=== PATIENT | female | born 1990 | race Caucasian/White ===

== ENCOUNTER 2022-05-13 08:34 | Outpatient (CLI) | payer BC, SELFPAY ==
--- NOTE | 2022-05-13 08:45 | US_ITS ---
Final Report Patient: TABITHA HARDIN Facility:?[facility] Patient ID:?[id number] Site Patient ID:?[id number]. Site :?[id number] Study:?US OB Pelvis TV DATING/VIABILITY-05/13/2022 10:37:27 AM Ordering Physician:Stacy February Final Report: INDICATION: . TECHNIQUE: Ultrasound OB pelvis transabdominal and transvaginal. Real-time brown-scale imaging of the pelvis was performed. COMPARISON: None. FINDINGS: There is a single intrauterine gestation. The embryo demonstrates a regular cardiac rate measuring 174 beats per minute. The embryo`s crown rump length measurement of 4.5 cm corresponds to a gestational age of 11 weeks 2 days with a sonographic due date of 11/30/2022. Yolk sac not visualized. Gestational sac measures 4.9 cm. There are no gross abnormalities noted within the embryo at this early state of development. No signs of perigestational hemorrhage. Right ovary measures 3.2 x 1.4 x 1.4. Left ovary is not visualized. IMPRESSION: 1. Single viable intrauterine approximately 11 weeks 2 days with estimated due date of 11/30/2022. No abnormalities seen. 2. Left ovary not visualized. Dictated by John Willard MD @ 05/13/2022 11:55:24 AM (Electronic Signature)
== END 2022-05-13 08:35 | disposition home or self-care (01) ==
LOC: US 08:36
PROVIDERS: PCP Family Medicine; Visit Provider Physician Assistant
DX: Z34.91 Encounter for supervision of normal pregnancy, unspecified, first trimester (principal); Z3A.11 11 weeks gestation of pregnancy
CPT/HCPCS: 76817

== ENCOUNTER 2022-05-13 10:08 | Outpatient (CLI) | payer BC, SELFPAY ==
[2022-05-13 13:00] LABS: Alanine Aminotransferase* 62 U/L (4-35); Aspartate Amino Transferase* 39 U/L (12-35)
[2022-05-13 16:54] LABS: Chlamydia DNA Amplified* NOT DETECTED (No Detected); GC DNA Amplified* NOT DETECTED (No Detected)
[2022-05-13 21:27] LABS: Hepatitis B Surface Antigen* Negative (Negative)
[2022-05-13 21:40] LABS: HIV 1/2/P24 Combo Screen* Negative (Negative)
[2022-05-13 22:33] LABS: Hepatitis C Virus Antibody* Negative (Negative)
[2022-05-14 23:29] LABS: Rapid Plasma Reagin (RPR) Non Reactive (Non Reactive)
[2022-05-16 16:57] LABS: Hepatitis B Core Antibody, IgM Negative (Negative); Hepatitis B Surface Antigen Negative (Negative); Hepatitis C Antibody by CIA Negative (Negative)
[2022-05-24 21:19] LABS: Cystic Fibrosis, Allele 1 Negative; Cystic Fibrosis, Allele 2 Negative
== END 2022-05-13 10:09 | disposition home or self-care (01) ==
PROVIDERS: PCP Family Medicine; Visit Provider Physician Assistant
DX: O99.281 Endocrine, nutritional and metabolic diseases complicating pregnancy, first trimester (principal); E03.9 Hypothyroidism, unspecified; R74.8 Abnormal levels of other serum enzymes; Z3A.11 11 weeks gestation of pregnancy; Z01.419 Encounter for gynecological examination (general) (routine) without abnormal findings; Z11.51 Encounter for screening for human papillomavirus (HPV); Z11.3 Encounter for screening for infections with a predominantly sexual mode of transmission
CPT/HCPCS: 80074; 81220; 84450; 84460; 86592; 86703; 86706; 86762; 86803; 86850; 86900; 86901; 87086; 87491; 87591; 87624; 88175

== ENCOUNTER 2022-05-16 14:40 | Outpatient (CLI) | payer BC, SELFPAY ==
--- NOTE | 2022-05-16 15:00 | CRLHL7_ITS ---
For Patients: As a result of the Century Cures Act, medical imaging exams and procedure reports are released immediately into your electronic medical record. You may view this report before your referring provider. If you have questions, please contact your health care provider. INDICATION: Abnormal liver enzymes TECHNIQUE: Ultrasound abdomen limited. Sonographic images of the right upper quadrant were obtained using brown-scale and color Doppler images. COMPARISON: I required ultrasound February 2018 FINDINGS: Liver: Normal in size and echotexture. No masses. No intrahepatic biliary dilatation. Gallbladder: Postcholecystectomy Common bile duct: 5 mm. Pancreas: Normal. Right kidney: 11.1 x 4.6 x 5.0 cm. Questionable focal masslike area versus normal tissue measuring 4.2 x 2.9 x 2.8 centimeters. Vasculature: Proximal abdominal aorta and IVC are normal. IMPRESSION: Difficult exam due to patient body habitus. Questionable masslike area of the right kidney difficult to adequately visualize on this exam, this could be evaluated with contrast-enhanced CT as clinically indicated. Post cholecystectomy. Dictated by Mariangel Callahan MD @ 05/17/2022 1:01:29 PM (Electronically Signed)
== END 2022-05-16 14:41 | disposition home or self-care (01) ==
LOC: US 14:41
PROVIDERS: PCP Family Medicine; Visit Provider Physician Assistant
DX: R74.8 Abnormal levels of other serum enzymes (principal); R94.8 Abnormal results of function studies of other organs and systems
CPT/HCPCS: 76705

== ENCOUNTER 2022-06-10 09:31 | Outpatient (CLI) | payer BC, SELFPAY | END 2022-06-10 09:32 | disposition home or self-care (01) | LOC: NFLDREF 09:32 | PROVIDERS: PCP Family Medicine; Visit Provider Advanced Practice Midwife | DX: Z34.92 Encounter for supervision of normal pregnancy, unspecified, second trimester (principal); Z3A.15 15 weeks gestation of pregnancy; E03.9 Hypothyroidism, unspecified | CPT/HCPCS: 84443 ==

== ENCOUNTER 2022-07-15 09:49 | Outpatient (CLI) | payer BC, SELFPAY ==
--- NOTE | 2022-07-15 10:00 | CRLHL7_ITS ---
For Patients: As a result of the Century Cures Act, medical imaging exams and procedure reports are released immediately into your electronic medical record. You may view this report before your referring provider. If you have questions, please contact your health care provider. INDICATION: Rule out tumor. TECHNIQUE: CT abdomen and pelvis acquired with Isovue 350 IV contrast. COMPARISON: Comparison made to abdominal ultrasound report 05/17/2022. FINDINGS: Lower chest: Unremarkable. Liver: Unremarkable. Normal in size and attenuation. No suspicious masses. Gallbladder and bile ducts: Gallbladder surgically absent. No biliary ductal dilation. Pancreas: Unremarkable. No mass or inflammation. Spleen: Unremarkable. Normal in size. No masses. Adrenal glands: Unremarkable. No nodules. Kidneys: No renal mass. No stones or hydronephrosis. No filling defect in collecting systems or opacified portions of the ureters or bladder. GI tract: Unremarkable. Normal in caliber. No sign of mass or inflammation. Normal appendix. Vasculature: Unremarkable. Mesenteric arteries are patent. Lymph nodes: No lymphadenopathy. Omentum/Peritoneum/Abdominal Wall: Unremarkable. No sign of mass or infiltration. No free air or significant free fluid. Pelvis: Unremarkable. Bones: Unremarkable for age. IMPRESSION: Unremarkable exam. No renal mass. Please note that all CT scans at this facility use dose modulation, iterative reconstruction, and/or weight-based dosing when appropriate to reduce radiation dose to as low as reasonably achievable. Dictated by John Willard MD @ 07/15/2022 12:46:57 PM (Electronically Signed)
== END 2022-07-15 09:50 | disposition home or self-care (01) ==
LOC: CT 09:49
PROVIDERS: PCP Family Medicine; Visit Provider Family Medicine
DX: N28.9 Disorder of kidney and ureter, unspecified (principal)
CPT/HCPCS: 74178; Q9967

== ENCOUNTER 2023-10-14 07:30 | Outpatient (CLI) | payer OTHER, SELFPAY | END 2023-10-14 07:31 | disposition home or self-care (01) | LOC: NFLDREF 10:41 | PROVIDERS: PCP Family Medicine; Referring Provider Family Medicine; Visit Provider Family Medicine | DX: Z13.220 Encounter for screening for lipoid disorders (principal); E03.9 Hypothyroidism, unspecified; Z13.228 Encounter for screening for other metabolic disorders | CPT/HCPCS: 80053; 80061; 84439; 84443 ==